=== PATIENT | male | born 1985 | race Hispanic/Latino ===

== ENCOUNTER 2021-03-13 14:01 | Emergency (ER) | payer OTHER ==
[~2021-03-13] VITALS: Ht 167.6 cm; Wt 81.6 kg
[2021-03-13] MEDS ORDERED: SODIUM CHLORIDE 0.9% 500ML 500 ML IV ONE (14:30)
[2021-03-13] MEDS ORDERED: CASIRIVIMAB/IMDEVIMAB 10 ML in SODIUM CHLORIDE 0.9% 100 ML IV ONE (14:30)
[2021-03-13] MEDS ORDERED: HYDROCODONE/APAP 5MG-325MG TAB PO ONE (15:00)
[2021-03-13 17:27] VITALS: BP 136/72
== END 2021-03-13 17:28 | disposition home or self-care (01) ==
LOC: ER 14:34
DX: R06.02 Shortness of breath (principal); R05 Cough; U07.1 COVID-19
CPT/HCPCS: 71045; 99282